=== PATIENT | female | born 1970 | race American Indian/Alaskan Native ===

== ENCOUNTER 2017-02-03 20:16 | Emergency (ER) | payer BC ==
[2017-02-03] MEDS ORDERED: XYLOCAINE 2% INFILTRATI ONE (23:55)
--- NOTE | 2017-02-04 01:14 | Emergency Department Report ---
HPI - General Chief Complaint: Skin/Abscess/Foreign Body Time Seen by Provider: 02/03/17 23:55 - HPI HPI: This is a 47 year-old female presents to the emergency department with complaint of a right armpit abscess is been going on for the past 3-4 days and getting progressively bigger and progressive and more painful. She denies any fever, nausea, vomiting. She did use a needle to poke a hole and got a small amount of pus out of it a few days ago. She has a history of diabetes and hypertension. The patient presents with very elevated blood pressure despite her compliance with lisinopril. She denies any headache , vision change, chest pain, shortness of breath. ED Past Medical Hx - Past Medical History Hx Hypertension: Yes Hx Diabetes: Yes Additional medical history: HERPES,SYHLLUS - Surgical History Additional Surgical History: 2 C-SECTIONS - Social History Smoking Status: Never Smoker Substance Use Type: None - Medications Home Medications: Home Medications Medication Instructions Recorded Confirmed Last Taken Type Sulfamethoxazole/Trimethoprim 1 each PO BID #14 tablet 02/04/17 Unknown Rx [Bactrim DS TAB] traMADol [Ultram] 50 mg PO Q6HR PRN #10 tablet 02/04/17 Unknown Rx ED Review of Systems ROS: Stated complaint: BOIL ON R ARMPIT Other details as noted in HPI Comment: All other systems reviewed and negative Constitutional: denies: chills, fever Eyes: denies: eye pain, eye discharge, vision change ENT: denies: ear pain, throat pain Respiratory: denies: cough, shortness of breath, wheezing Cardiovascular: denies: chest pain, palpitations Gastrointestinal: denies: abdominal pain, nausea, diarrhea Genitourinary: denies: urgency, dysuria, discharge Musculoskeletal: denies: back pain, joint swelling, arthralgia Skin: lesions (abscess). denies: pruritus Neurological: denies: headache, weakness, paresthesias Physical Exam - Physical Exam Vital Signs: Vital Signs 02/03/17 20:34 Temperature 98.8 F Pulse Rate 81 Respiratory 18 Rate Blood Pressure 195/101 O2 Sat by Pulse 100 Oximetry Physical Exam: GENERAL: The patient is well-developed well-nourished. HEENT: Normocephalic. Atraumatic. Extraocular motions are intact. Patient has moist mucous membranes. NECK: Supple. Trachea is midline. CHEST/LUNGS: Clear to auscultation. There is no respiratory distress noted. HEART/CARDIOVASCULAR: Regular. There is no tachycardia. There is no gallop rub or murmur. ABDOMEN: Abdomen is soft, nontender. Patient has normal bowel sounds. There is no abdominal distention. SKIN: There is a large right axillary abscess or hidradenitis suuportiva. It is tender to palpation. It is about 6 cm in length and 2 cm in width. The surrounding portion is indurated in the inside is fluctuant and warm but there is no erythema. NEURO: She is awake and alert and oriented. The patient has no focal neurologic deficits. The patient has normal speech and gait. MUSCULOSKELETAL: There is no tenderness or deformity. There is no limitation range of motion. There is no evidence of acute injury. ED Course Vital Signs 02/03/17 20:34 Temperature 98.8 F Pulse Rate 81 Respiratory 18 Rate Blood Pressure 195/101 O2 Sat by Pulse 100 Oximetry - I & D Right Arm Type of Procedure: Simple Site: Right axilla Blade Size: 11 I & D Procedure: betadine prep, sterile drapes applied, sterile dressing applied Progress: 6 cc of purulent malodorous drainage. ED Medical Decision Making - Medical Decision Making This is a 47-year-old who presents with a right axilla abscess. It is tender and fluctuate. 2 mL of 2% lidocaine was used to try and give local anesthetic. Then and incision and drainage was done with at least 5 mL of purulent drainage. Due to the size of the opening left and the location in the axilla, it was not packed with any gauze, but it was covered with sterile gauze. Patient will be placed on antibiotics. She's been encouraged to use warm compresses to continue trying to release and express any further infection. We discussed monitoring for worsening of infection. She will follow up with her primary care doctor in the next few days. The patient had very elevated blood pressure when she first arrived. I checked it again without giving any antihypertensives and found her to have a blood pressure of 130/80. However after the incision and drainage procedure the blood pressure once again went up. She was given a dose of intramuscular hydralazine. About 20 minutes later the blood pressure was rechecked and it still remain very elevated. Patient is asymptomatic and says that she often walks around with blood pressure is high if not higher. I told her I was not comfortable discharging her with such high blood pressure but she did not want to wait any further for the hydralazine to work or for any further medications. The patient signed the AMA waiver because of her blood pressure issues, however the patient was still given full discharge instructions, antibiotics and pain medication. She will return to the ER with any worsening of her symptoms or any acute distress - Differential Diagnosis abscess, boil, cellulitis, hidradenitis supportiva Critical Care Time: No Critical care attestation.: If time is entered above; I have spent that time in minutes in the direct care of this critically ill patient, excluding procedure time. ED Disposition Clinical Impression: Hidradenitis suppurativa of right axilla Hypertension Qualifiers: Hypertension type: essential hypertension Qualified Code(s): I10 - Essential ( primary) hypertension Disposition: LEFT AGAINST MEDICAL ADVICE Is pt being admited?: No Condition: Stable Instructions: Abscess (ED), Hypertension (ED) Additional Instructions: You can use a warm compress for about 20 minutes at a time, multiple times per day, to try and express more infection from the abscess. Take the antibiotics as prescribed. Return to the emergency department with any worsening of her symptoms or any acute distress.You've been prescribed a medication that is sedating. Therefore this medication cannot be mixed with alcohol, or taken prior to driving, working, or being responsible for children. Prescriptions: Sulfamethoxazole/Trimethoprim [Bactrim DS TAB] 1 each PO BID #14 tablet traMADol [Ultram] 50 mg PO Q6HR PRN #10 tablet PRN Reason: Pain Referrals: PRIMARY MD JESSENIA [Primary Care Provider] - 3-5 Days SHASHI KAMINSKI MD [Staff Physician] - 3-5 Days [facility] [place] [Outside] - 3-5 Days Forms: AMA Form Time of Disposition: 01:17
[2017-02-04] MEDS ORDERED: APRESOLINE IM ONE (02:04)
[2017-02-04 02:44] VITALS: BP 191/93
== END 2017-02-04 02:55 | disposition left against medical advice (07) ==
LOC: ED 20:16
DX: L73.2 Hidradenitis suppurativa (principal); I10 Essential (primary) hypertension; E11.9 Type 2 diabetes mellitus without complications
CPT/HCPCS: 10060; 96372; 99282; J0360

== ENCOUNTER 2018-03-04 11:05 | Emergency (ER) | payer BC, OTHER ==
[2018-03-04] MEDS ORDERED: CATAPRES PO ONE (11:41)
--- NOTE | 2018-03-04 11:59 | Emergency Department Report ---
ED General Adult HPI - General Chief complaint: High BP Stated complaint: HYPERTENSIVE Time Seen by Provider: 03/04/18 11:24 Source: patient Mode of arrival: Ambulatory Limitations: No Limitations - History of Present Illness Initial comments: Patient is a 48-year-old female who presents today with elevated blood pressure. Patient is very agitated because she states she went to physical so she can go to work and her blood pressure was elevated she believes because the cuff was too tight. Patient states she began to get more more frustrated with the tach that was doing her physical. Patient's blood pressure was approximately 200 systolic. Patient has no symptoms and denies shortness of breath chest pain decreased urination or focal neurological deficit. Patient states that her blood pressure was fine this morning she has does have a history of hypertension but has been taking her meds. Patient states she believes her blood pressure is elevated now discover inconvenience and worried that she will not be able to go to work secondary not having her paperwork filled out from her physical. Severity scale (0 -10): 0 - Related Data Previous Rx's Medication Instructions Recorded Last Taken Type Sulfamethoxazole/Trimethoprim 1 each PO BID #14 tablet 02/04/17 Unknown Rx [Bactrim DS TAB] traMADol [Ultram] 50 mg PO Q6HR PRN #10 tablet 02/04/17 Unknown Rx Allergies Allergy/AdvReac Type Severity Reaction Status Date / Time morphine Allergy Rash Verified 02/03/17 20:38 naproxen sodium [From Aleve] Allergy Rash Verified 02/03/17 20:39 ED Review of Systems ROS: Stated complaint: HYPERTENSIVE Other details as noted in HPI Comment: All other systems reviewed and negative ED Past Medical Hx - Past Medical History Previous Medical History?: Yes Hx Hypertension: Yes Hx CVA: No Hx Heart Attack/AMI: No Hx Congestive Heart Failure: No Hx Diabetes: Yes Hx Deep Vein Thrombosis: No Hx Pulmonary Embolism: No Hx GERD: No Hx Liver Disease: No Hx Renal Disease: No Hx of Cancer: No Hx Sickle Cell Disease: No Hx Arthritis: No Hx Headaches / Migraines: No Hx Seizures: No Hx Kidney Stones: No Hx Psychiatric Treatment: No Hx Asthma: No Hx COPD: No Hx Tuberculosis: No Hx Dementia: No Hx HIV: No Additional medical history: HERPES,SYHLLUS - Surgical History Past Surgical History?: Yes Hx Coronary Stent: No Hx Open Heart Surgery: No Hx Pacemaker: No Hx Internal Defibrillator: No Hx Cholecystectomy: No Hx Appendectomy: No Hx Breast Surgery: No Additional Surgical History: 2 C-SECTIONS - Social History Smoking Status: Never Smoker Substance Use Type: None - Medications Home Medications: Home Medications Medication Instructions Recorded Confirmed Last Taken Type Sulfamethoxazole/Trimethoprim 1 each PO BID #14 tablet 02/04/17 Unknown Rx [Bactrim DS TAB] traMADol [Ultram] 50 mg PO Q6HR PRN #10 tablet 02/04/17 Unknown Rx ED Physical Exam - General Limitations: No Limitations General appearance: alert, in no apparent distress - Head Head exam: Present: atraumatic, normocephalic - Eye Eye exam: Present: normal appearance - ENT ENT exam: Present: mucous membranes moist - Neck Neck exam: Present: normal inspection - Respiratory Respiratory exam: Present: normal lung sounds bilaterally. Absent: respiratory distress - Cardiovascular Cardiovascular Exam: Present: regular rate, normal rhythm. Absent: systolic murmur, diastolic murmur, rubs, gallop - GI/Abdominal GI/Abdominal exam: Present: soft, normal bowel sounds - Extremities Exam Extremities exam: Present: normal inspection - Back Exam Back exam: Present: normal inspection - Neurological Exam Neurological exam: Present: alert, oriented X3 - Psychiatric Psychiatric exam: Present: normal affect, normal mood - Skin Skin exam: Present: warm, dry, intact, normal color. Absent: rash ED Course Vital Signs 03/04/18 03/04/18 03/04/18 11:12 11:40 11:44 Temperature 97.6 F Pulse Rate 79 82 82 Respiratory 18 18 Rate Blood Pressure 212/131 200/98 Blood Pressure 212/131 200/108 [Right] O2 Sat by Pulse 98 98 Oximetry 03/04/18 12:44 Temperature Pulse Rate 71 Respiratory Rate Blood Pressure Blood Pressure 158/96 [Right] O2 Sat by Pulse Oximetry ED Medical Decision Making - Medical Decision Making Patient was given Catapres and blood pressure did respond appropriately. The patient is still asymptomatic. Patient was cleared for work will be discharged home Critical care attestation.: If time is entered above; I have spent that time in minutes in the direct care of this critically ill patient, excluding procedure time. ED Disposition Clinical Impression: Hypertensive urgency Disposition: DC-01 TO HOME OR SELFCARE Is pt being admited?: No Does the pt Need Aspirin: No Condition: Stable Instructions: Hypertension (ED) Referrals: PRIMARY CARE, [Primary Care Provider] - 3-5 Days
[2018-03-04 12:44] VITALS: BP 158/96
== END 2018-03-04 13:13 | disposition home or self-care (01) ==
LOC: ED 11:05
DX: I10 Essential (primary) hypertension (principal); E11.9 Type 2 diabetes mellitus without complications; Z88.5 Allergy status to narcotic agent
CPT/HCPCS: 99282

== ENCOUNTER 2018-06-02 23:46 | Emergency (ER) | payer SELFPAY ==
--- NOTE | 2018-06-03 00:58 | XRay Report ---
FINAL REPORT EXAM: XR CHEST ROUTINE 2V HISTORY: SOB/coughing TECHNIQUE: 2 views of the chest. PRIORS: None. FINDINGS: The cardiomediastinal silhouette appears normal. The lungs are clear. The bones and soft tissues are unremarkable. IMPRESSION: No evidence of acute cardiopulmonary disease
--- NOTE | 2018-06-03 08:19 | Emergency Department Report ---
ED General Adult HPI - General Chief complaint: Upper Respiratory Infection Stated complaint: COLD SX CHEST PAIN Time Seen by Provider: 06/03/18 07:46 Source: patient Mode of arrival: Ambulatory Limitations: No Limitations - History of Present Illness Initial comments: Patient is a 48-year-old female no significant past medical history who presents with cough that's been going on for 2 days. Patient states that she had an episode of coughing and she coughed up some thick mucus. She states that she was working with someone who is been sick. She wanted to be checked out to make sure she doesn't have a pneumonia. Patient states she took some Midol and other meds but it's not helping with the cough. Patient states cough is about 5 out of 10 and the pain she denies having any shortness of breath and chills or any night sweats. Patient doesn't smoke or drink. - Related Data Previous Rx's Medication Instructions Recorded Last Taken Type Sulfamethoxazole/Trimethoprim 1 each PO BID #14 tablet 02/04/17 Unknown Rx [Bactrim DS TAB] traMADol [Ultram] 50 mg PO Q6HR PRN #10 tablet 02/04/17 Unknown Rx Amlodipine Besylate [Norvasc] 5 mg PO DAILY #30 tablet 06/03/18 Unknown Rx Benzonatate [Tessalon Perles] 100 mg PO Q8HR #30 capsule 06/03/18 Unknown Rx Lisinopril 20 mg PO DAILY #30 tablet 06/03/18 Unknown Rx Allergies Allergy/AdvReac Type Severity Reaction Status Date / Time morphine Allergy Rash Verified 02/03/17 20:38 naproxen sodium [From Aleve] Allergy Rash Verified 02/03/17 20:39 ED Review of Systems ROS: Stated complaint: COLD SX CHEST PAIN Other details as noted in HPI Constitutional: denies: chills, fever Eyes: denies: eye pain, eye discharge, vision change ENT: denies: ear pain, throat pain Respiratory: cough. denies: shortness of breath, wheezing Cardiovascular: denies: chest pain, palpitations Endocrine: no symptoms reported Gastrointestinal: denies: abdominal pain, nausea, diarrhea Genitourinary: denies: urgency, dysuria, discharge Musculoskeletal: denies: back pain, joint swelling, arthralgia Skin: denies: rash, lesions Neurological: denies: headache, weakness, paresthesias Psychiatric: denies: anxiety, depression Hematological/Lymphatic: denies: easy bleeding, easy bruising ED Past Medical Hx - Past Medical History Previous Medical History?: Yes Hx Hypertension: Yes Hx CVA: No Hx Heart Attack/AMI: No Hx Congestive Heart Failure: No Hx Diabetes: Yes Hx Deep Vein Thrombosis: No Hx Pulmonary Embolism: No Hx GERD: No Hx Liver Disease: No Hx Renal Disease: No Hx Sickle Cell Disease: No Hx Arthritis: No Hx Headaches / Migraines: No Hx Seizures: No Hx Kidney Stones: No Hx Psychiatric Treatment: No Hx Asthma: No Hx COPD: No Hx Tuberculosis: No Hx Dementia: No Hx HIV: No Additional medical history: HERPES,SYHLLUS - Surgical History Past Surgical History?: Yes Hx Coronary Stent: No Hx Open Heart Surgery: No Hx Pacemaker: No Hx Internal Defibrillator: No Hx Cholecystectomy: No Hx Appendectomy: No Hx Breast Surgery: No Additional Surgical History: 2 C-SECTIONS - Social History Smoking Status: Never Smoker Substance Use Type: None - Medications Home Medications: Home Medications Medication Instructions Recorded Confirmed Last Taken Type Sulfamethoxazole/Trimethoprim 1 each PO BID #14 tablet 02/04/17 Unknown Rx [Bactrim DS TAB] traMADol [Ultram] 50 mg PO Q6HR PRN #10 tablet 02/04/17 Unknown Rx Amlodipine Besylate [Norvasc] 5 mg PO DAILY #30 tablet 06/03/18 Unknown Rx Benzonatate [Tessalon Perles] 100 mg PO Q8HR #30 capsule 06/03/18 Unknown Rx Lisinopril 20 mg PO DAILY #30 tablet 06/03/18 Unknown Rx ED Physical Exam - General Limitations: No Limitations General appearance: alert, in no apparent distress - Head Head exam: Present: atraumatic, normocephalic - Eye Eye exam: Present: normal appearance - ENT ENT exam: Present: mucous membranes moist - Neck Neck exam: Present: normal inspection - Respiratory Respiratory exam: Present: normal lung sounds bilaterally. Absent: respiratory distress - Cardiovascular Cardiovascular Exam: Present: regular rate, normal rhythm. Absent: systolic murmur, diastolic murmur, rubs, gallop - GI/Abdominal GI/Abdominal exam: Present: soft, normal bowel sounds - Extremities Exam Extremities exam: Present: normal inspection - Back Exam Back exam: Present: normal inspection - Neurological Exam Neurological exam: Present: alert, oriented X3 - Psychiatric Psychiatric exam: Present: normal affect, normal mood - Skin Skin exam: Present: warm, dry, intact, normal color. Absent: rash ED Course Vital Signs 06/02/18 06/03/18 23:51 04:07 Temperature 98.9 F 98.1 F Pulse Rate 83 66 Respiratory 16 19 Rate Blood Pressure 209/117 Blood Pressure 209/119 [Right] O2 Sat by Pulse 97 97 Oximetry ED Medical Decision Making - Radiology Data Radiology results: report reviewed, image reviewed Chest xray: Shows no acute cardiopulmonary disease - Medical Decision Making Cdx: Viral URI ddx: PNA, post nasal drip I will get a chest xray and then I will get send patient home with [facility]. Additional verbal discharge instructions were given. Patient agrees with plan. Critical care attestation.: If time is entered above; I have spent that time in minutes in the direct care of this critically ill patient, excluding procedure time. ED Disposition Clinical Impression: Viral URI, Cough, Essential hypertension Disposition: DC-01 TO HOME OR SELFCARE Is pt being admited?: No Does the pt Need Aspirin: No Condition: Stable Instructions: Hypertension (ED) Prescriptions: Amlodipine Besylate [Norvasc] 5 mg PO DAILY #30 tablet Benzonatate [Tessalon Perles] 100 mg PO Q8HR #30 capsule Lisinopril 20 mg PO DAILY #30 tablet Referrals: JOSELITO WINCHESTER MD [Staff Physician] - 3-5 Days
[2018-06-03] MEDS ORDERED: CATAPRES PO ONE (08:44)
[2018-06-03] MEDS ORDERED: CATAPRES ONE (08:47)
[2018-06-03 08:50] VITALS: BP 221/114
== END 2018-06-03 09:58 | disposition home or self-care (01) ==
LOC: ED 23:46
DX: J06.9 Acute upper respiratory infection, unspecified (principal); I10 Essential (primary) hypertension; E11.9 Type 2 diabetes mellitus without complications; Z88.6 Allergy status to analgesic agent; Z88.8 Allergy status to other drugs, medicaments and biological substances
CPT/HCPCS: 71046; 99283

== ENCOUNTER 2018-11-12 14:07 | Emergency (ER) | payer BC ==
[2018-11-12] MEDS ORDERED: TETRACAINE 0.5% OU ONE (14:15)
[2018-11-12] MEDS ORDERED: FUL-GLO OP ONE ×2 (14:15→16:25)
[2018-11-12] MEDS ORDERED: TOBRADEX OU ONE (14:16)
[2018-11-12 14:17] VITALS: BP 123/72
--- NOTE | 2018-11-12 14:17 | Emergency Department Report ---
Chief Complaint: Eye Problems Stated Complaint: LFT EYE PAIN Time Seen by Provider: 11/12/18 14:14 - HPI History of Present Illness: TO ER WITH ACUTE ONSET L EYE PAIN STATES SHE FEELS LIKE SOMETHING IS IN IT- SHE THINKS AN EYE LASH IS TURNED INWARD NO TEARING NO TRAUMA NO VISION CHANGE VSS MSE COMPLETED NO LIFE THREAT MSE screening note: Focused history and physical exam performed. Due to findings the following was ordered: ED Disposition for MSE Condition: Stable
[2018-11-12] MEDS ORDERED: TETRACAINE 0.5% ONE (16:25)
--- NOTE | 2018-11-12 16:54 | Emergency Department Report ---
Eye Injury/Foreign Body - HPI Duration: 3 Days Eye Location: Left Severity: Moderate (6/10 to left lower eyelid) Tetanus Status: Up to Date Eye Symptoms: Eye Pain: Yes (left lower eyelid), Blurred Vision: No, Eye Redness: Yes (left lower eyelid), Grinding/Hammering Metal: No, Used Eye Protection: Yes, Contact Lens Use: No, Recalls Injury: No, Photophobia: No Other History: This is a 48-year-old female here report that she went to her doctor's office for a complete physical yesterday and the doctor told her that she has a sty in her left lower eyelid and he told her to take [id number] stye medication which she did but when she woke up this morning she said it was more swollen and right or left lower eyelid. Tetanus shot is up-to-date. Pain is 6 out of 10 and probably worse to touch. No alleviating factor. She states she is a big bump on her lower eyelid and it is very painful. Denies any pain in her eyes. Denies any foreign body sensation in her eyes. Denies any feeling of pressure. Denies any trauma. Denies a sore throats or earache. Denies any cough, shortness of breath or chest pain. Denies any nasal drainage. ED Review of Systems ROS: Stated complaint: LFT EYE PAIN Other details as noted in HPI Constitutional: denies: chills, fever Eyes: eye pain (left eyelid). denies: eye discharge, vision change ENT: denies: ear pain, throat pain, congestion Respiratory: denies: cough, shortness of breath, wheezing Cardiovascular: denies: chest pain, palpitations, edema, syncope Gastrointestinal: denies: nausea, vomiting Musculoskeletal: denies: arthralgia Skin: denies: rash Neurological: denies: headache ED Past Medical Hx - Past Medical History Previous Medical History?: Yes Hx Hypertension: Yes Hx CVA: No Hx Heart Attack/AMI: No Hx Congestive Heart Failure: No Hx Diabetes: Yes Hx Deep Vein Thrombosis: No Hx Pulmonary Embolism: No Hx GERD: No Hx Liver Disease: No Hx Renal Disease: No Hx Sickle Cell Disease: No Hx Arthritis: No Hx Headaches / Migraines: No Hx Seizures: No Hx Kidney Stones: No Hx Psychiatric Treatment: No Hx Asthma: No Hx COPD: No Hx Tuberculosis: No Hx Dementia: No Hx HIV: No Additional medical history: HERPES,syphilis - Surgical History Past Surgical History?: Yes Hx Coronary Stent: No Hx Open Heart Surgery: No Hx Pacemaker: No Hx Internal Defibrillator: No Hx Cholecystectomy: No Hx Appendectomy: No Hx Breast Surgery: No Additional Surgical History: 2 C-SECTIONS - Family History Family history: hypertension - Social History Smoking Status: Never Smoker Substance Use Type: None - Medications Home Medications: Home Medications Medication Instructions Recorded Confirmed Last Taken Type Sulfamethoxazole/Trimethoprim 1 each PO BID #14 tablet 02/04/17 Unknown Rx [Bactrim DS TAB] traMADol [Ultram] 50 mg PO Q6HR PRN #10 tablet 02/04/17 Unknown Rx Amlodipine Besylate [Norvasc] 5 mg PO DAILY #30 tablet 06/03/18 Unknown Rx Benzonatate [Tessalon Perles] 100 mg PO Q8HR #30 capsule 06/03/18 Unknown Rx Lisinopril 20 mg PO DAILY #30 tablet 06/03/18 Unknown Rx Gentamicin 0.3% Ophth Oint 1 applicatio OP Q6H 7 Days #1 tube 11/12/18 Unknown Rx Eye Injury Exam - Exam General: Vital signs noted. No distress. Alert and acting appropriately. This is a 48-year-old female well-nourished well-developed in no acute distress - Visual Acuity Right Vision Acuity Degree: 20/50 Eye Exam: Both EOMI, Neither Injection, Neither Chemosis, Neither Abnormal Pupil, Neither Eye Foreign Body, Neither Lid Foreign Body, Neither Mucous Discharge, Neither Purulent Discharge, Neither Corneal Edema, Neither Photophobia Left Vision Acuity Degree: 20/50 Eye Exam: Both EOMI, Neither Injection, Neither Chemosis, Neither Abnormal Pupil, Neither Eye Foreign Body, Neither Lid Foreign Body (plan), Neither Mucous Discharge, Neither Purulent Discharge, Neither Fluorescein Uptake, Neither Fluorescein Uptake (slit lamp), Neither Cell/Flare (slit lamp) (with the), Neither Corneal Edema, Neither Photophobia Bilateral Vision Acuity Degree: 20/40 Eye Exam: Both EOMI, Neither Injection, Neither Chemosis, Neither Abnormal Pupil, Neither Eye Foreign Body, Neither Lid Foreign Body, Neither Mucous Discharge, Neither Purulent Discharge, Neither Corneal Edema, Neither Photophobia Exam: Funduscopic exam is normal bilateral ED Course Vital Signs 11/12/18 14:15 Temperature 97.8 F Pulse Rate 54 L Respiratory 16 Rate Blood Pressure 123/72 O2 Sat by Pulse 100 Oximetry - Reevaluation(s) Reevaluation #1: 11/12/18 17:08 Please see visual acuity documentation on the nurse's notes for details. ED Medical Decision Making - Medical Decision Making This is a 48-year-old female here because she says she has a lump that is red and painful on her left lower eyelid. Well-nourished well-developed and in no acute distress. Assessment/plan 1: Hordeleum-left lower eyelid patient's visual acuity stable. She usually wears glasses she did not will have her glasses with her. She was given prescription for gentamicin ophthalmic ointment to apply to left lower eyelid with instructions . 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 Discharged home in stable condition. Vital signs are stable she is afebrile Critical care attestation.: If time is entered above; I have spent that time in minutes in the direct care of this critically ill patient, excluding procedure time. ED Disposition Clinical Impression: Hordeolum externum left lower eyelid, Pain of left eyelid Disposition: DC-01 TO HOME OR SELFCARE Is pt being admited?: No Does the pt Need Aspirin: No Condition: Stable Instructions: Stye (ED), Heat Pack Application (ED) Additional Instructions: You have Hordeolum on the left lower eyelid which is in the same family has a stye. Please follow up with the insurance loss adjuster in 3-5 days Use antibiotic ointment as instructed. Apply warm compresses to affected area as instructed If symptoms worsen, return to the emergency room otherwise follow-up with op hthalmology if Prescriptions: Gentamicin 0.3% Ophth Oint 1 applicatio OP Q6H 7 Days #1 tube Referrals: PRIMARY CARE, [Referring] - 3-5 Days your, insurance loss adjuster [Other] - 3-5 Days Forms: Work/School Release Form(ED)
== END 2018-11-12 17:30 | disposition home or self-care (01) ==
LOC: ED 14:07
DX: H00.015 Hordeolum externum left lower eyelid (principal); I10 Essential (primary) hypertension

== ENCOUNTER 2019-08-15 22:34 | Emergency (ER) | payer BC ==
[2019-08-15 22:41] VITALS: BP 155/93
[2019-08-15] MEDS ORDERED: ASPIRIN 325 MG TAB PO ONE (22:47)
--- NOTE | 2019-08-15 23:10 | XRay Report ---
CHEST 1 VIEW INDICATION: MAIN: Chest Pain fever, chest and nasal congestion; persistent cough w/chest pain, "my chest is hurti ng from coughing a lot, "light yellow mucous; took coricidin pm-no relief". COMPARISON: 06/02/2018. FINDINGS: Support devices: None. Heart: Within normal limits. Lungs/Pleura: No acute air space or interstitial disease. Additional findings: None. IMPRESSION: No acute abnormality. Signer Name: Eusebio Borjas MD Signed: 08/15/2019 11:05 PM Workstation Name: [id number]
[2019-08-15 23:52] LABS: Basophils % (Auto) 0.6 % (0.0-1.8); Eosinophils # (Auto) 0.3 K/mm3 (0.0-0.4); Eosinophils % (Auto) 4.6 % (0.0-4.3); Hematocrit 34.1 % (30.3-42.9); Hemoglobin 11.2 gm/dl (10.1-14.3); Lymphocytes % (Auto) 27.1 % (13.4-35.0); Mean Corpuscular HGB Conc 33 % (30-34); Mean Corpuscular Volume 89 fl (79-97); Monocytes # (Auto) 0.9 K/mm3 (0.0-0.8); Monocytes % (Auto) 12.6 % (0.0-7.3); Platelet Count 284 K/mm3 (140-440); Red Blood Count 3.83 M/mm3 (3.65-5.03)
[2019-08-16 00:07] LABS: BUN/Creatinine Ratio 15; Blood Urea Nitrogen 16 mg/dL (7-17); Hemolysis Index 11
--- NOTE | 2019-08-16 00:39 | Emergency Department Report ---
ED General Adult HPI - General Chief complaint: Upper Respiratory Infection Stated complaint: FLU SYMPTOMS Time Seen by Provider: 08/16/19 00:19 Source: patient Mode of arrival: Ambulatory Limitations: No Limitations - History of Present Illness Initial comments: Mrs. Berger is a 49 yo female with hx of HTN, "cardiomegaly" DM who presents with nasal congestion cough. Coriciden does not provide any relief. Mild symptoms. No chest pain. Did have chest pain only with cough. Mrs. Berger wanted to make sure she would not have any cardiac complications. Has been sick for 4 days since . No fever. +productive cough with yellow mucus -: Gradual, days(s) (4) Location: head, chest Radiation: non-radiation Severity scale (0 -10): 4 Quality: aching Consistency: intermittent Improves with: none Worsens with: other (cough) Associated Symptoms: cough, malaise - Related Data Previous Rx's Medication Instructions Recorded Last Taken Type Sulfamethoxazole/Trimethoprim 1 each PO BID #14 tablet 02/04/17 Unknown Rx [Bactrim DS TAB] traMADoL [Ultram] 50 mg PO Q6HR PRN #10 tablet 02/04/17 Unknown Rx Amlodipine Besylate [Norvasc] 5 mg PO DAILY #30 tablet 06/03/18 Unknown Rx Benzonatate [Tessalon Perles] 100 mg PO Q8HR #30 capsule 06/03/18 Unknown Rx Lisinopril 20 mg PO DAILY #30 tablet 06/03/18 Unknown Rx Gentamicin 0.3% Ophth Oint 1 applicatio OP Q6H 7 Days #1 tube 11/12/18 Unknown Rx Benzonatate [Tessalon Perles] 100 mg PO Q8HR PRN #15 capsule 08/16/19 Unknown Rx Allergies Allergy/AdvReac Type Severity Reaction Status Date / Time morphine Allergy Rash Verified 02/03/17 20:38 naproxen sodium [From Aleve] Allergy Rash Verified 02/03/17 20:39 ED Review of Systems ROS: Stated complaint: FLU SYMPTOMS Other details as noted in HPI Comment: All other systems reviewed and negative Constitutional: malaise. denies: chills, fever ENT: congestion Respiratory: cough. denies: shortness of breath, wheezing Cardiovascular: chest pain Musculoskeletal: denies: back pain ED Past Medical Hx - Past Medical History Previous Medical History?: Yes Hx Hypertension: Yes Hx CVA: No Hx Heart Attack/AMI: No Hx Congestive Heart Failure: No Hx Diabetes: Yes Hx Deep Vein Thrombosis: No Hx Pulmonary Embolism: No Hx GERD: No Hx Liver Disease: No Hx Renal Disease: No Hx Sickle Cell Disease: No Hx Arthritis: No Hx Headaches / Migraines: No Hx Seizures: No Hx Kidney Stones: No Hx Psychiatric Treatment: No Hx Asthma: No Hx COPD: No Hx Tuberculosis: No Hx Dementia: No Hx HIV: No Additional medical history: HERPES,syphilis - Surgical History Past Surgical History?: Yes Hx Coronary Stent: No Hx Open Heart Surgery: No Hx Pacemaker: No Hx Internal Defibrillator: No Hx Cholecystectomy: No Hx Appendectomy: No Hx Breast Surgery: No Additional Surgical History: 2 C-SECTIONS - Social History Smoking Status: Never Smoker Substance Use Type: None - Medications Home Medications: Home Medications Medication Instructions Recorded Confirmed Last Taken Type Sulfamethoxazole/Trimethoprim 1 each PO BID #14 tablet 02/04/17 Unknown Rx [Bactrim DS TAB] traMADoL [Ultram] 50 mg PO Q6HR PRN #10 tablet 02/04/17 Unknown Rx Amlodipine Besylate [Norvasc] 5 mg PO DAILY #30 tablet 06/03/18 Unknown Rx Benzonatate [Tessalon Perles] 100 mg PO Q8HR #30 capsule 06/03/18 Unknown Rx Lisinopril 20 mg PO DAILY #30 tablet 06/03/18 Unknown Rx Gentamicin 0.3% Ophth Oint 1 applicatio OP Q6H 7 Days #1 tube 11/12/18 Unknown Rx Benzonatate [Tessalon Perles] 100 mg PO Q8HR PRN #15 capsule 08/16/19 Unknown Rx ED Physical Exam - General Limitations: No Limitations General appearance: alert, in no apparent distress, other (frequent cough appears nontoxic) - Head Head exam: Present: atraumatic, normocephalic - Eye Eye exam: Present: normal appearance - ENT ENT exam: Present: normal orophraynx, mucous membranes moist - Neck Neck exam: Present: normal inspection, full ROM. Absent: tenderness, meningismus - Respiratory Respiratory exam: Present: normal lung sounds bilaterally. Absent: respiratory distress, wheezes, rales, rhonchi - Cardiovascular Cardiovascular Exam: Present: regular rate, normal rhythm, normal heart sounds. Absent: systolic murmur, diastolic murmur, rubs, gallop - GI/Abdominal GI/Abdominal exam: Present: soft, normal bowel sounds. Absent: distended, tenderness, guarding, rebound - Extremities Exam Extremities exam: Present: normal inspection - Neurological Exam Neurological exam: Present: alert, oriented X3 - Psychiatric Psychiatric exam: Present: normal affect, normal mood - Skin Skin exam: Present: warm, dry, intact, normal color. Absent: rash ED Course Vital Signs 08/15/19 08/15/19 22:36 22:39 Temperature 97.4 F L 97.4 F L Pulse Rate 81 78 Respiratory 18 18 Rate Blood Pressure 155/93 155/93 O2 Sat by Pulse 97 97 Oximetry ED Medical Decision Making - Lab Data Result diagrams: 08/15/19 23:20 08/15/19 23:20 Laboratory Results - last 24 hr 08/15/19 08/15/19 23:20 23:20 WBC 7.4 RBC 3.83 Hgb 11.2 Hct 34.1 MCV 89 MCH 29 MCHC 33 RDW 15.0 Plt Count 284 Lymph % (Auto) 27.1 [place] % (Auto) 12.6 H Eos % (Auto) 4.6 H Baso % (Auto) 0.6 Lymph # 2.0 [place] # 0.9 H Eos # 0.3 Baso # 0.0 Seg Neutrophils % 55.1 Seg Neutrophils # 4.1 Sodium 142 Potassium 3.6 Chloride 100.9 Carbon Dioxide 27 Anion Gap 18 BUN 16 Creatinine 1.1 Estimated GFR > 60 BUN/Creatinine Ratio 15 Glucose 114 H Calcium 9.0 Troponin T < 0.010 - EKG Data Interpretation: no acute changes 08/16/19 00:39 EKG obtained 2252 Normal sinus rhythm rate 80 bpm normal axis positive LVH no signs of ischemia no ST elevation normal intervals - Radiology Data Radiology results: report reviewed chest radiograph: NAP - Medical Decision Making URI EKG without acute ischemia or findings of pericarditis, No PNA on cxr, cbc trop chemistry all within normal limits rx: tessalon Critical care attestation.: If time is entered above; I have spent that time in minutes in the direct care of this critically ill patient, excluding procedure time. ED Disposition Clinical Impression: Upper respiratory infection Disposition: DC-01 TO HOME OR SELFCARE Is pt being admited?: No Does the pt Need Aspirin: No Condition: Stable Instructions: Upper Respiratory Infection (ED) Prescriptions: Benzonatate [Tessalon Perles] 100 mg PO Q8HR PRN #15 capsule PRN Reason: Cough Forms: Work/School Release Form(ED)
== END 2019-08-16 01:16 | disposition home or self-care (01) ==
LOC: ED 22:34
DX: J06.9 Acute upper respiratory infection, unspecified (principal); I10 Essential (primary) hypertension; E11.9 Type 2 diabetes mellitus without complications; Z79.899 Other long term (current) drug therapy; Z88.5 Allergy status to narcotic agent; Z88.8 Allergy status to other drugs, medicaments and biological substances
CPT/HCPCS: 36415; 71045; 80048; 84484; 85025; 93005; 93010; 99284

== ENCOUNTER 2019-10-26 00:19 | Emergency (ER) | payer BC | END 2019-10-26 05:19 | disposition left against medical advice (07) | LOC: ED 00:19 | DX: R05 Cough (principal); R50.9 Fever, unspecified; Z53.21 Procedure and treatment not carried out due to patient leaving prior to being seen by health care provider ==